=== PATIENT | female | born 1965 | race Caucasian/White ===

== ENCOUNTER → 2019-01-25 10:02 | Outpatient (CLI) | payer OTHER, MEDICAID, SELFPAY ==
--- NOTE | 2019-01-25 10:04 | DI.RAD.S_ITS ---
PROCEDURE: XR RIBS RT MIN 3V W CXR 1V INDICATIONS: pain neck, upper back, arms bilat with UE neuropathy, R ante TECHNIQUE: 2 views of the right ribs were acquired, along with a single view chest. COMPARISON: None. FINDINGS: Surgical changes and devices: None. Bones and chest wall: No fractures or dislocations. No suspicious bony lesions. Overlying soft tissues appear unremarkable. Lungs and pleura: No pleural effusions or pneumothorax. Lungs appear clear. Mediastinum: Mediastinal contours appear normal. Heart size is normal. IMPRESSION: No fracture identified. No acute disease Dictated by: Cameron Redmond M.D. on 01/25/2019 at 11:17 Approved by: Cameron Redmond M.D. on 01/25/2019 at 11:19
--- NOTE | 2019-01-25 10:04 | DI.RAD.S_ITS ---
PROCEDURE: XR CERVICAL SPINE 2V OR 3V INDICATIONS: pain neck, upper back, arms bilat with UE neuropathy, R ante TECHNIQUE: 3 view(s) of the cervical spine were acquired. COMPARISON: None. FINDINGS: Bones: No fractures or dislocations to the C7 level. The lateral masses of C1 appear intact on the odontoid view. No suspicious bony lesions. Straightening of the normal cervical lordosis. Fusion plate spurring and sclerosis. Diffuse facet arthropathy. Mild narrowing of the C5-C6 C6-C7 disc spaces. Left-sided carotid atherosclerotic calcifications IMPRESSION: Straightening of the normal cervical lordosis. Diffuse facet arthropathy. Mild C5-C6 and C6-C7 disc degeneration. Dictated by: Cameron Redmond M.D. on 01/25/2019 at 12:10 Approved by: Cameron Redmond M.D. on 01/25/2019 at 12:12
--- NOTE | 2019-01-25 10:04 | DI.RAD.S_ITS ---
PROCEDURE: XR THORACIC SPINE 3V INDICATIONS: pain neck, upper back, arms bilat with UE neuropathy, R ante TECHNIQUE: 3 views of the thoracic spine were acquired. COMPARISON: None. FINDINGS: Bones: No fractures or dislocations. No suspicious bony lesions. Multilevel discogenic changes and spurring. Soft tissues: No paravertebral stripe thickening. IMPRESSION: Diffuse thoracic spondylosis. No fracture Dictated by: Cameron Redmond M.D. on 01/25/2019 at 12:24 Approved by: Cameron Redmond M.D. on 01/25/2019 at 12:25
[2019-01-25 11:27] LABS: Add Manual Diff / Slide Review NO; Basophils Absolute Auto 100 /uL (0-100); Basophils Percent Auto 0.5 % (0-2); Eosinophils Absolute Auto 200 /uL (0-450); Eosinophils Percent Auto 1.6 % (2-4); Hematocrit 46.5 % (36-46); Hemoglobin 15.8 g/dL (12.0-16.0); Lymphocytes Absolute Auto 3500 /uL (1100-4500); Lymphocytes Percent Auto 32.8 % (25-40); Mean Corpuscular HGB Conc 34.1 % (30-36); Mean Corpuscular Hemoglobin 29.6 PG (26-34); Mean Corpuscular Volume 86.9 fL (80-100); Monocytes Absolute Auto 900 /uL (0-900); Monocytes Percent Auto 8.1 % (3-14); Neutrophils Absolute Auto 6100 /uL (1500-7000); Platelet Count 214 X10^3/uL (150-400); Red Blood Cell Count 5.35 X10^6/uL (4.0-5.2); Red Cell Distribution Width 13.4 % (11.6-14.8); White Blood Cell Count 10.7 X10^3/uL (4.5-11.0)
[2019-01-25 11:56] LABS: Alanine Aminotransferase 27 IU/L (9-52); Albumin 4.3 g/dL (3.5-5.0); Albumin Globulin Ratio 1.2 (1.0-2.8); Alkaline Phosphatase 104 U/L (38-126); Aspartate Aminotransferase 26 IU/L (14-36); BUN Creatinine Ratio 17.5 (6-22); Bilirubin Total 0.5 mg/dL (0.2-1.3); Blood Urea Nitrogen 14 mg/dL (7-17); Calcium 9.6 mg/dL (8.4-10.2); Carbon Dioxide 29 mmol/L (22-32); Chloride 99 mmol/L (98-107); Cholesterol 244 mg/dL (140-199); Estimated Glomerular Filt Rate > 60.0 mL/min (>60); Globulin 3.6 g/dL (1.7-4.1); Glucose 126 mg/dL (70-100); HDL Cholesterol 25 mg/dL (40-60); HEMOLYSIS 18 (0-50); LDL Cholesterol Calculated 150 mg/dL (<100); Potassium 3.9 mmol/L (3.4-5.1); Sodium 137 mmol/L (137-145); Total Protein 7.9 g/dL (6.3-8.2); Triglycerides 345 mg/dL (35-150)
[2019-01-25 12:24] LABS: Appearance Urine UA SL CLOUDY; Bilirubin Urine UA NEGATIVE (NEGATIVE); Color Urine UA YELLOW; Glucose Urine UA NEGATIVE (Negative); Ketones Urine UA NEGATIVE (NEGATIVE); Leukocyte Esterase Urine UA NEGATIVE (NEGATIVE); Nitrite Urine UA NEGATIVE (Negative); Occult Blood Urine UA NEGATIVE (Negative); Protein Urine UA NEGATIVE (Negative); Specific Gravity Urine UA <=1.005 (1.000-1.035); Urobilinogen Urine UA 0.2 E.U./dL (0.2)
[2019-01-25 12:31] LABS: Thyroid Stimulating Hormone 1.96 uIU/mL (0.47-4.68)
== END ==
PROVIDERS: PCP Family Medicine; Visit Provider Family Medicine
DX: G56.90 Unspecified mononeuropathy of unspecified upper limb (principal); S29.019A Strain of muscle and tendon of unspecified wall of thorax, initial encounter; S16.1XXA Strain of muscle, fascia and tendon at neck level, initial encounter; E78.5 Hyperlipidemia, unspecified; F32.9 Major depressive disorder, single episode, unspecified; I10 Essential (primary) hypertension; R07.81 Pleurodynia
CPT/HCPCS: 36415; 71101; 72040; 72072; 80053; 80061; 81003; 84443; 85025

== ENCOUNTER → 2019-06-24 14:14 | Outpatient (CLI) | payer OTHER, MEDICAID, SELFPAY ==
[2019-06-24 14:51] LABS: Alanine Aminotransferase 34 IU/L (9-52); Albumin 4.4 g/dL (3.5-5.0); Albumin Globulin Ratio 1.3 (1.0-2.8); Alkaline Phosphatase 112 U/L (38-126); Aspartate Aminotransferase 25 IU/L (14-36); BUN Creatinine Ratio 15.7 (6-22); Bilirubin Total 0.6 mg/dL (0.2-1.3); Blood Urea Nitrogen 11 mg/dL (7-17); Calcium 9.8 mg/dL (8.4-10.2); Carbon Dioxide 30 mmol/L (22-32); Chloride 100 mmol/L (98-107); Cholesterol 137 mg/dL (140-199); Estimated Glomerular Filt Rate > 60.0 mL/min (>60); Globulin 3.4 g/dL (1.7-4.1); Glucose 111 mg/dL (70-100); HDL Cholesterol 34 mg/dL (40-60); HEMOLYSIS < 15 (0-50); LDL Cholesterol Calculated 62 mg/dL (<100); Potassium 4.4 mmol/L (3.4-5.1); Sodium 139 mmol/L (137-145); Total Protein 7.8 g/dL (6.3-8.2); Triglycerides 207 mg/dL (35-150)
[2019-06-24 15:13] LABS: Hemoglobin A1C% w Est Avg Glu 5.4 % (4.0-6.0)
== END ==
PROVIDERS: PCP Family Medicine; Visit Provider Family Medicine
DX: F32.9 Major depressive disorder, single episode, unspecified (principal); Z51.81 Encounter for therapeutic drug level monitoring
CPT/HCPCS: 36415; 80053; 80061; 83036

== ENCOUNTER → 2019-07-06 13:06 | Outpatient (CLI) | payer OTHER, MEDICAID, SELFPAY ==
--- NOTE | 2019-07-06 | DI.MRI.S_ITS ---
PROCEDURE: MR CERVICAL SPINE WO CON INDICATIONS: Other abnormalities of gait and mobility TECHNIQUE: Noncontrast sagittal T1 spin echo and T2 fast spin echo, sagittal STIR, foraminal oblique sagittal T2 fast spin echo, and axial gradient echo or T2 fast spin echo through the cervical spine. COMPARISON: None. FINDINGS: Image quality: Excellent. Alignment and Curvature: There is normal bony alignment. Bone Marrow: Marrow demonstrates normal overall signal. Spinal Cord: Visualized spinal cord has normal size and signal. No cerebellar tonsillar herniation. Paraspinous Soft Tissues: No paravertebral masses. Prevertebral soft tissues are normal in thickness. C2-C3: Normal appearance. C3-C4: Normal appearance. C4-C5: Normal appearance. C5-C6: Slightly decreased intervertebral disc space and degenerative endplate changes are seen. There is diffuse disc bulge with mild central canal stenosis and moderate right-sided neuroforaminal narrowing. C6-C7: Decreased intervertebral disc space and degenerative endplate changes are noted. Central to right-sided disc herniation is seen with a mild central canal stenosis and moderate to severe right-sided neuroforaminal narrowing. There is compression of exiting right C7 nerve root. C7-T1: Normal appearance. IMPRESSION: 1. Central to right-sided disc bulge at C5-6 and C6-7 levels causing mild central canal stenosis and moderate right-sided neuroforaminal narrowing as described above. 2. No marrow edema. No compression fracture or spondylolisthesis. 3. No abnormal cervical spinal cord signal. Dictated by: Marcial Gonzalez M.D. on 07/06/2019 at 15:37 Approved by: Marcial Gonzalez M.D. on 07/06/2019 at 15:40
--- NOTE | 2019-07-06 | DI.MRI.S_ITS ---
PROCEDURE: MR HEAD/BRAIN WO CON INDICATIONS: Other abnormalities of gait and mobility TECHNIQUE: Noncontrast axial T1 spin echo, axial T2 fast spin echo, sagittal and axial FLAIR, coronal T2 fast spin echo, axial gradient echo, axial diffusion and ADC through the brain. COMPARISON: None. FINDINGS: Image quality: Degraded by metallic artifact within the right scalp. CSF Spaces: Basal cisterns are patent as visualized. No definite extra-axial fluid collections. Ventricles are normal in size and shape. Brain: No definite intracranial masses or hemorrhage. Perez/white matter interface is normal. Brainstem appears normal. Diffusion-weighted images demonstrate no acute ischemic insult. No chronic ischemic insults. Normal intravascular flow voids are present. Skull and face: Calvarium has normal marrow signal. Orbits appear normal. Sinuses: Sinuses and mastoids are clear. IMPRESSION: Limited examination secondary to metallic artifact. No definite acute process. Dictated by: Horacio Morel M.D. on 07/06/2019 at 16:39 Approved by: Horacio Morel M.D. on 07/06/2019 at 16:40
== END ==
PROVIDERS: PCP Family Medicine; Visit Provider Psychiatry & Neurology Neurology
DX: M50.20 Other cervical disc displacement, unspecified cervical region (principal)
CPT/HCPCS: 70551; 72141

== ENCOUNTER 2019-09-23 07:31 | Outpatient (CLI) | payer OTHER, MEDICAID, SELFPAY ==
[2019-09-23 08:24] VITALS: BP 119/67; PULSE 75; RESP 18; TEMP 36.7; O2SAT 98
--- NOTE | 2019-09-23 08:57 | PC.NURSE ---
Patient arrived with chest cold symptoms. Congested cough. Afebrile. Dr. Diaz spoke with patient and consented for rescheduled procedure.
[2019-09-23 10:47] LABS: Influenza A and B by PCR Rapid Negative (Negative)
== END 2019-09-23 08:30 | disposition home or self-care (01) ==
PROVIDERS: Nurse Practitioner Family; PCP Family Medicine; Visit Provider Physical Medicine & Rehabilitation
DX: M54.12 Radiculopathy, cervical region (principal); Z53.9 Procedure and treatment not carried out, unspecified reason
CPT/HCPCS: 87502; J0702; J1100; J2250; J3010

== ENCOUNTER → 2019-10-15 17:36 | Outpatient (CLI) | payer OTHER, MEDICAID, SELFPAY ==
[2019-10-15 19:08] LABS: Influenza A - CEPHEID Flu A NEGATIVE (NEGATIVE); Influenza B - CEPHEID Flu B NEGATIVE (NEGATIVE)
== END ==
PROVIDERS: PCP Family Medicine; Visit Provider Nurse Practitioner Family
DX: R68.89 Other general symptoms and signs (principal); J02.9 Acute pharyngitis, unspecified
CPT/HCPCS: 87070; 87502

== ENCOUNTER 2019-11-11 10:23 | Outpatient (CLI) | payer OTHER, MEDICAID, SELFPAY ==
[2019-11-11] VITALS (9 sets, daily range): BP systolic 121–158; BP diastolic 68–83; PULSE 71–77; RESP 16; TEMP 36.6; O2SAT 97–100
--- NOTE | 2019-11-11 10:24 | DI.RAD.S_ITS ---
PROCEDURE: PAIN L INTERLAMINAR/CAUDAL INJ INDICATIONS: RADICULOPATHY FINDINGS: Fluoroscopic spot filming was performed to verify placement of spinal needles at the C6-C7 level(s), as labeled on the films. Appropriate location(s) of the needle tip(s) was confirmed by injection of iodinated contrast. Dictated by: Caemron Redmond M.D. on 11/11/2019 at 15:35 Approved by: Cameron Redmond M.D. on 11/11/2019 at 15:35
[2019-11-11] MEDS: MIDAZOLAM 5 MG/5 ML VIAL IV (11:38)
[2019-11-11] MEDS: fentaNYL 100 MCG/2 ML INJ 50 MCG IV (11:39)
[2019-11-11] MEDS: IOPAMIDOL 15 ML VIAL 3 ML INJ (11:46)
[2019-11-11] MEDS: BUPIVACAINE 0.25% (PF) VIAL 2 ML INJ (11:46)
[2019-11-11] MEDS: DEXAMETHASONE 10 MG/ML VIAL 20 MG INJ (11:46)
--- NOTE | 2019-11-11 11:48 | PC.NURSE ---
ASSISTING PT OFF TABLE AND TRANSPORTING TO POST PROC AREA IN STABLE CONDITION. PASSING RN CARE OF PT OFF TO NI Vera RN.
--- NOTE | 2019-11-11 11:58 | P.PCN_ITS ---
Procedures Date/Time Date of procedure: 11/11/19 Time of procedure: 11:58 General Procedure description: PREOP DIAGNOSIS 1. CERVICAL STENOSIS, 2. CERVICAL HNP WITH UPPER EXTREMITY RADICULAR FEATURES, POST OP DIAGNOSIS 1. CERVICAL STENOSIS, 2. CERVICAL HNP WITH UPPER EXTREMITY RADICULAR FEATURES, PROCEDURES 1. FLUORSCOPICALLY GUIDED CONTRAST CONTROLLED INTERLAMINAR EPIDURAL STEROID INJECTION - C6/7 TL CORKY PHYSICIAN: DO JEAN Lubin Kerline is referred by Dr. Delarosa for treatment of Cervical HNP with Upper Extremity Paresthesias. FINDINGS Cervical Stenosis due to disc deterioration and nerve root irritation and nerve root irritation DESCRIPTION OF PROCEDURE Fluoroscopically guided, contrast-controlled C6/7 translaminar epidural steroid injection with conscious sedation. Following review of allergy and review of potential side effects and complications, including, but not necessarily limited to, infection, allergic reaction, local tissue breakdown, temporary as well as permanent nerve injury, stroke, paralysis, and possible , the patient indicated that patient understood and agreed to proceed. An informed consent document was signed by the patient, witnessed by a nurse, and placed in the patient's chart. Additionally, other treatment options including modalities, medications, and physical therapy were reviewed with the patient. After review of previous anaesthesic history and IV conscious sedation the patient was deemed safe to proceed with todays procedure with IV conscious sedation as ASA class II designation. Safety time-out was performed to confirm patient ID, procedure to be performed and site of procedure. IV sedation was accomplished with a combination of 2mg of Versed and 50mcg of Fentanyl administered by the RN after DO order, titrated to patient comfort during the course of the procedure while the patient remained responsive to all verbal commands. In the prone position, following sterile prep and drape of the cervical region, the C6/7 translaminar space was identified fluoroscopically. The skin was anesthetized via a 25-gauge 1.5-inch needle with 1% lidocaine solution. At this point, a 25-gauge, 2.5-inch short bevel spinal needle was atraumatically intr oduced and advanced under fluoroscopic guidance into epidural space at the C6/7 translaminar space. Depth was confirmed on lateral view. Radiological data, including multiple fluoroscopic views of the cervical spine, reveal a spinal needle at the C6/7 translaminar space. Lateral views then show placement of the needle in the epidural space. Subsequent views show contrast material flowing superiorly and inferiorly in the epidural space. DSA fluoroscopy with live contrast injection, once again, confirmed no vascular or intrathecal uptake. At this point, using loss of resistance technique with saline and air, the epidural space was entered. Following negative aspiration, injection of approximately 1.5 cc of Isovue-200 with live fluoroscopy in the AP view confirmed epidural flow in the epidural space without vascular or intrathecal uptake observed. Subsequently, a test dose of 1 cc of 1% lidocaine solution was injected and patient was observed for two minutes without signs or symptoms of complications, including abdominal pain, shortness of breath, bilateral upper or lower extremity weakness, nausea and vomiting, prior to steroid injection. At this point, 2cc or 20mg of dexamethasone was then injected without incident. The patient tolerated the procedure well without signs or symptoms of complications prior to being transferred to the recovery area for further monitoring, The patient was then transferred to the recovery area where they were observed for an appropriate period of time after the injection. The patient reported a VAS score of 6 prior to the procedure and a post-procedure VAS of 0. Total Fluoroscopy Time: 37.0 seconds Total Conscious Time: 24min POST OP INSTRUCTIONS The patient was provided a Pain Log to continue to record their response to the target-specific procedure prior to follow-up visit with the referring provider. Additionally, specific post-injection care instructions and a contact number to our office were provided if concerns arise regarding possible complications associated with the procedure are suspected. David Diaz DO Complications: none
--- NOTE | 2019-11-11 12:34 | PC.NURSE ---
Post procedure note: Patient arrived at 1157. Awake and alert. Pain level 7/10. Hand off report received from Sybil Ibanez RN. VSS. Discharged to home w/c to car at 1230
== END 2019-11-11 12:30 | disposition home or self-care (01) ==
PROVIDERS: PCP Family Medicine; Visit Provider Physical Medicine & Rehabilitation
DX: M48.02 Spinal stenosis, cervical region (principal); M50.123 Cervical disc disorder at C6-C7 level with radiculopathy; R20.2 Paresthesia of skin
CPT/HCPCS: 62323; 99152; J1100; J2250; J3010

== ENCOUNTER 2019-11-26 15:51 | Emergency (ER) | payer OTHER, MEDICAID, SELFPAY ==
[2019-11-26 15:58] VITALS: BP 117/79; PULSE 98; RESP 18; TEMP 36.7; O2SAT 100
--- NOTE | 2019-11-26 15:58 | DI.RAD.S_ITS ---
PROCEDURE: XR SHOULDER RT MIN 2V INDICATIONS: fell 3 days ago, pain w/ movement. TECHNIQUE: 3 views of the shoulder were acquired. COMPARISON: None. FINDINGS: Bones: There is a subtle longitudinally oriented lucency along the greater tuberosity, potentially a nondisplaced fracture. There is undersurface spurring along the lateral acromion and degenerative cystic changes in the inferior glenoid. No suspicious bony lesions. Visualized ribs appear intact. Soft tissues: No suspicious soft tissue calcifications. IMPRESSION: 1. Questionable nondisplaced greater tuberosity fracture. 2. Degenerative changes of the lateral acromion and glenohumeral joint. Dictated by: Maris Dailey M.D. on 11/26/2019 at 16:19 Approved by: Maris Dailey M.D. on 11/26/2019 at 16:21
[2019-11-26 16:01] VITALS: PULSE 98
--- NOTE | 2019-11-26 16:19 | ED_ITS ---
HPI - Extremity Injury (Upper) General Chief Complaint: Extremity Injury, Upper Stated Complaint: FALL RIGHT SHOULDER PAIN Time Seen by Provider: 11/26/19 15:55 Source: patient Mode of arrival: Ambulatory Limitations: no limitations History of Present Illness HPI narrative: Patient is a 54-year-old female presents with right shoulder pain after trip and fall at home 3 days ago. She states she was outside in her yard when she tripped on a branch falling on her shoulder. It hurts every time she moves she cannot roll over in bed. She has a slipped disc and has also numbness and tingling in her hand any way that does not seem to be any worse she denies any weakness. No elbow pain. MD complaint: injury to: right and shoulder Onset (ago): day(s) (3) Related Data Previous Rx's Medication Instructions Recorded cpap mask and tubing #1 ea 05/20/19 diazepam 10 mg tablet 10 mg PO .COMPLEX PRN #2 tab 06/16/19 trazodone 50 mg tablet 50 mg PO DAILY #30 tab 06/25/19 atorvastatin 20 mg tablet See Rx Instructions .ROUTE 08/23/19 .COMPLEX #90 tab clobetasol 0.05 % topical cream See Rx Instructions .ROUTE 08/23/19 .COMPLEX #30 gram albuterol sulfate 90 mcg/actuation 2 puff INHALATION Q4-6H PRN #8.5 09/23/19 aerosol inhaler gram benzonatate 100 mg capsule 200 mg PO BID-TID PRN #14 cap 10/15/19 fluticasone propionate 50 2 spray NASAL DAILY PRN #9.9 ml 10/15/19 mcg/actuation nasal spray,suspension atenolol 25 mg tablet 25 mg PO DAILY #90 tab 10/25/19 venlafaxine 150 mg 300 mg PO BEDTIME #60 cap 10/26/19 capsule,extended release 24 hr hydroxyzine HCl 25 mg tablet See Rx Instructions .ROUTE 11/01/19 .COMPLEX PRN #60 tab hydrochlorothiazide 12.5 mg tablet 12.5 mg PO DAILY #90 tab 11/05/19 losartan 100 mg tablet 100 mg PO DAILY #90 tab 11/05/19 diazepam 10 mg tablet 10 mg PO DAILY PRN #10 tab 11/08/19 cyclobenzaprine 10 mg tablet 10 mg PO BID #60 tab 11/11/19 hydrocodone-acetaminophen [[place]] 1 tab PO Q6H PRN #10 tab 11/26/19 Allergies Allergy/AdvReac Type Severity Reaction Status Date / Time No Known Drug Allergies Allergy Verified 11/26/19 16:01 Review of Systems Review of Systems Narrative: GENERAL: Denies chills,fever HEENT: Denies throat pain RESPIRATORY: Denies dyspnea, cough, wheezing CARDIOVASCULAR: Denies chest pain, palpitations GASTROINTESTINAL: Denies nausea, vomiting MUSCULOSKELETAL: See HPI SKIN: No rash, no laceration, no pruritus NEUROLOGIC: Denies weakness, dizziness, headache, numbness 8 point review of systems is negative except for those stated above and HPI Patient History Medical History Chicken pox (Resolved) Chronic back pain (Chronic) Chronic headaches (Chronic) CTS (carpal tunnel syndrome) (Chronic) Depression (Chronic) Fibroids (Resolved) Irregular periods/menstrual cycles (Resolved) Ovarian cyst (Resolved) Psoriasis (Chronic) RLS (restless legs syndrome) (Chronic) Sleep apnea (Chronic) Surgical History Anesthesia (Resolved) Status post section (Resolved 1986) Status post section (Resolved 1991) Status post cholecystectomy (Resolved 1993) Status post hysterectomy (Resolved 2016) Family History Father Heart disease Hypertension Hyperlipidemia Mother Diabetes mellitus Hypertension Brother Mental health problem Grandfather Cancer Grandmother Diabetes mellitus Heart disease Hypertension Hyperlipidemia Stroke Social History Smoking Status: Current every day smoker Tobacco: How many years used: 35 alcohol intake: former (quit in Jul) Smoking Status: Current every day smoker alcohol intake frequency: 0-2 drinks per day Alcohol type: beer and hard liquor Substance Use Type: does not use Exam Initial Vital Signs Initial Vital Signs: Vital Signs Temperature 98.0 F 11/26/19 15:58 Pulse Rate 98 H 11/26/19 15:58 Respiratory Rate 18 11/26/19 15:58 Blood Pressure 117/79 11/26/19 15:58 Pulse Oximetry 100 11/26/19 15:58 GENERAL: Well-appearing, well-nourished and in no acute distress. CARDIOVASCULAR: peripheral pulses in tact, cap refill <2 sec RESPIRATORY: No respiratory distress, speaks in full sentences without difficulty EXTREMITIES: Normal range of motion, no clubbing or edema. Neurovascularly intact Right upper extremity pain with shoulder extension and anteriorly. No clavicle step-offs sensation intact over deltoid. No pain in humerus. All no AC separation. Roll Up Guider Operator strength is equal bilaterally able to flex extend and supinate and pronate elbow. NEUROLOGICAL: Cranial nerves II through XII grossly intact. Normal gait and spe ech. SKIN: Warm, dry, no petechiae, no rashes or lesions. Procedures Orthopedic Splinting/Casting Injury #1: Side: right Upper Extremity Injury Location: shoulder Upper Extremity Immobilizer: sling/shoulder immobilizer Post splinting neuro exam: intact Post splinting vascular exam: intact Placed by: Nursing Course Orders Ordered: ED Orders 11/26/19 15:58 XR shoulder RT min 2V Stat Vital Signs Vital signs: Vital Signs - 8 hr 11/26/19 15:58 11/26/19 16:01 Temperature 98.0 F Pulse Rate 98 H Pulse Rate [Right Radial] 98 H Respiratory Rate 18 Blood Pressure 117/79 Pulse Oximetry 100 MDM - Extremity Injury (Upper) Imaging Data Extremity x-ray #1: Radiologist's Impression: PROCEDURE: XR SHOULDER RT MIN 2V INDICATIONS: fell 3 days ago, pain w/ movement. TECHNIQUE: 3 views of the shoulder were acquired. COMPARISON: None. FINDINGS: Bones: There is a subtle longitudinally oriented lucency along the greater tuberosity, potentially a nondisplaced fracture. There is undersurface spurring along the lateral acromion and degenerative cystic changes in the inferior glenoid. No suspicious bony lesions. Visualized ribs appear intact. Soft tissues: No suspicious soft tissue calcifications. IMPRESSION: 1. Questionable nondisplaced greater tuberosity fracture. 2. Degenerative changes of the lateral acromion and glenohumeral joint. Dictated by: Maris Dailey M.D. on 11/26/2019 at 16:19 Discharge Plan Departure Patient Disposition: Home Clinical Impression: Fracture of greater tuberosity of humerus Qualifiers: Encounter type: initial encounter Fracture type: closed Fracture alignment: nondisplaced Laterality: right Qualified Code(s): S42.254A - Nondisplaced fracture of greater tuberosity of right humerus, initial encounter for closed fracture Instructions: DI for Humeral Fracture Activity Restrictions/Additional Instructions: *You have been diagnosed with possible humeral fracture *What to do: Keep arm in sling, may require repeat x-rays and orthopedic follow-up. Please see your PCP in regards to *Continue to take medications as directed Ibuprofen 600 mg every 6-8 hours if needed for [id number] pain Tylenol 650 mg every 6 hours if needed for [id number] pain [place] 1 tablet every 6 hours if needed for severe pain *Follow up with your primary care provider in 2-3 days *Return to ER if you should have increasing pain, hand weakness swelling or any new, worsening or concerning symptoms CONTROLLED SUBSTANCE DISCHARGE (Narcotoic/benzodiazepine/Flexeril/Phenergan) 1. You have been prescribed narcotic medications, it does have acetaminophen/Tylenol/paracetamol in it so do not take extra Tylenol or Tylenol containing products TRAMADOL DOES NOT CONTAIN TYLENOL 2. Please understand that we cannot provide further refills of narcotics, benzodiazepines or controlled substances through the ED and her pain management will need to be through your provider. 3. While on these medications you cannot drive or operate heavy machinery. 4. You cannot sign legal documents or perform any duties such as this. 5. As long as you're taking opiate pain medications he should also be taking a stool softener such as Colace, Dulcolax, MiraLAX or prune juice, to help avoid constipation. Prescriptions: New hydrocodone-acetaminophen [[place]] 5-325 mg tablet 1 tab PO Q6H PRN (Reason: pain) Qty: 10 RF: 0 No Action albuterol sulfate [Ventolin HFA] 90 mcg/actuation HFA aerosol inhaler 2 puff INHALATION Q4-6H PRN (Reason: shortness of breath or wheezing) Qty: 8.5 RF: 0 fluticasone propionate 50 mcg/actuation spray,suspension 2 spray NASAL DAILY PRN (Reason: nasal congestion) Qty: 9.9 RF: 0 benzonatate [Tessalon Perles] 100 mg capsule 200 mg PO BID-TID PRN (Reason: cough) Qty: 14 RF: 0 (DME) cpap mask and tubing Qty: 1 RF: 0 diazepam [Valium] 10 mg tablet 10 mg PO .COMPLEX PRN (Reason: claustraphobia) Qty: 2 RF: 0 trazodone 50 mg tablet 50 mg PO DAILY Qty: 30 RF: 5 clobetasol 0.05 % cream See Rx Instructions .ROUTE .COMPLEX Qty: 30 RF: 2 atorvastatin 20 mg tablet See Rx Instructions .ROUTE .COMPLEX Qty: 90 RF: 0 atenolol 25 mg tablet 25 mg PO DAILY Qty: 90 RF: 0 venlafaxine 150 mg capsule,extended release 24hr 300 mg PO BEDTIME Qty: 60 RF: 0 hydroxyzine HCl 25 mg tablet See Rx Instructions .ROUTE .COMPLEX PRN (Reason: anxiety) Qty: 60 RF: 0 losartan 100 mg tablet 100 mg PO DAILY Qty: 90 RF: 1 hydrochlorothiazide 12.5 mg tablet 12.5 mg PO DAILY Qty: 90 RF: 1 diazepam 10 mg tablet 10 mg PO DAILY PRN (Reason: anxiety) Qty: 10 RF: 0 cyclobenzaprine 10 mg tablet 10 mg PO BID Qty: 60 RF: 1 Referrals: Any King ARNP [[employer] Administrator] - Isabella Delarosa DO [Primary Care Provider] -
== END 2019-11-26 16:52 | disposition home or self-care (01) ==
PROVIDERS: Emergency Provider Emergency Medicine; PCP Family Medicine
DX: S42.254A Nondisplaced fracture of greater tuberosity of right humerus, initial encounter for closed fracture (principal); W01.0XXA Fall on same level from slipping, tripping and stumbling without subsequent striking against object, initial encounter
CPT/HCPCS: 73030; 99283

== ENCOUNTER → 2020-05-15 16:26 | Outpatient (CLI) | payer OTHER, MEDICAID, SELFPAY ==
[2020-05-15 17:39] LABS: Add Manual Diff / Slide Review NO; Basophils Absolute Auto 100 /uL (0-100); Basophils Percent Auto 0.7 % (0-2); Eosinophils Absolute Auto 100 /uL (0-450); Eosinophils Percent Auto 0.8 % (2-4); Hemoglobin 14.5 g/dL (12.0-16.0); Lymphocytes Absolute Auto 3300 /uL (1100-4500); Lymphocytes Percent Auto 37.5 % (25-40); Mean Corpuscular HGB Conc 34.5 % (30-36); Mean Corpuscular Hemoglobin 30.8 PG (26-34); Mean Corpuscular Volume 89.1 fL (80-100); Monocytes Absolute Auto 600 /uL (0-900); Monocytes Percent Auto 6.4 % (3-14); Neutrophils Absolute Auto 4800 /uL (1500-7000); Neutrophils Percent Auto 54.6 % (50-75); Platelet Count 174 X10^3/uL (150-400); Red Blood Cell Count 4.71 X10^6/uL (4.0-5.2); Red Cell Distribution Width 13.7 % (11.6-14.8); White Blood Cell Count 8.8 X10^3/uL (4.5-11.0)
[2020-05-15 18:15] LABS: Rheumatoid Factor 21.7 IU/mL (<12.0)
[2020-05-15 18:16] LABS: C-Reactive Protein Quant < 0.5 mg/dL (<1.0)
[2020-05-15 18:18] LABS: Erythrocyte Sedimentation Rate 5 MM/HR (0-20)
[2020-05-15 18:30] LABS: Free T3, Triiodothyronine Free 3.47 pg/mL (2.77-5.27); Free T4, Direct Thyroxine 1.22 ng/dL (0.78-2.19)
[2020-05-15 18:44] LABS: Thyroid Stimulating Hormone 2.06 uIU/mL (0.47-4.68)
[2020-05-15 19:02] LABS: Vitamin B12 343 pg/mL (239-931)
[2020-05-18 20:09] LABS: ANA Screen, IFA Negative (.)
[2020-05-18 22:35] LABS: Vitamin B6 7.8 ug/L (2.0-32.8)
== END ==
PROVIDERS: PCP Nurse Practitioner; Referring Provider Nurse Practitioner; Visit Provider Nurse Practitioner
DX: L40.50 Arthropathic psoriasis, unspecified (principal); R52 Pain, unspecified
CPT/HCPCS: 36415; 82607; 82784; 83516; 84207; 84439; 84443; 84481; 85025; 85651; 86038; 86140; 86430

== ENCOUNTER → 2020-07-12 15:00 | Outpatient (CLI) | payer MEDICARE, MEDICAID, SELFPAY ==
[2020-07-12 16:40] LABS: Creatine Kinase 82 U/L (30-135)
[2020-07-12 16:43] LABS: Rheumatoid Factor 16.5 IU/mL (<12.0)
[2020-07-12 16:55] LABS: Erythrocyte Sedimentation Rate 11 MM/HR (0-20)
[2020-07-12 17:30] LABS: Thyroid Stimulating Hormone 1.13 uIU/mL (0.47-4.68)
[2020-07-12 17:31] LABS: Vitamin B12 427 pg/mL (239-931)
[2020-07-13 03:36] LABS: HBsAg Screen Negative (Negative); Hepatitis B Surf Ab Qualitativ Non Reactive (.)
[2020-07-13 15:48] LABS: SS A Ro Sjogrens Antibody < 0.2 AI (0.0-0.9); SS B La Sjogrens Antibody < 0.2 AI (0.0-0.9)
[2020-07-13 15:53] LABS: Hep C Virus Ab w/Reflex Quant NEGATIVE s/c (NEGATIVE)
[2020-07-13 16:36] LABS: Deamidated Gliadin Ab IgA 4 units (0-19); Deamidated Gliadin Ab IgG 2 units (0-19); Immunoglobulin A,Qn 111 mg/dL (87-352); t-Transglutaminase IgA <2 U/mL (0-3)
[2020-07-14 14:08] LABS: QuantiFERON Nil Value 0.08 IU/mL (.); QuantiFERON TB Gold Plus Negative (Negative); QuantiFERON TB1 Ag Value 0.09 IU/mL (.); QuantiFERON TB2 Ag Value 0.09 IU/mL (.)
[2020-07-14 15:11] LABS: Albumin 3.7 g/dL (2.9-4.4); Alpha 1 Globulin 0.1 g/dL (0.0-0.4); Beta 1 Globulin 0.9 g/dL (0.7-1.3); Protein, Total 6.8 g/dL (6.0-8.5)
[2020-07-14 20:59] LABS: CCP Antibodies IgG/IgA 21 units (0-19)
[2020-07-15 01:44] LABS: Vitamin B6 7.7 ug/L (2.0-32.8)
[2020-07-15 10:04] LABS: Alanine Aminotransferase 36 IU/L (<35); Albumin 4.5 g/dL (3.5-5.0); Albumin Globulin Ratio 1.4 (1.0-2.8); Alkaline Phosphatase 108 U/L (38-126); Aspartate Aminotransferase 38 IU/L (14-36); BUN Creatinine Ratio 21.9 (6-22); Bilirubin Total 0.7 mg/dL (0.2-1.3); Blood Urea Nitrogen 25 mg/dL (7-17); Calcium 9.8 mg/dL (8.4-10.2); Carbon Dioxide 27 mmol/L (22-32); Chloride 101 mmol/L (98-107); Estimated Glomerular Filt Rate 49.9 mL/min (>60); Globulin 3.2 g/dL (1.7-4.1); Glucose 100 mg/dL (70-100); HEMOLYSIS < 15 (0-50); Potassium 4.4 mmol/L (3.4-5.1); Sodium 136 mmol/L (137-145); Total Protein 7.7 g/dL (6.3-8.2)
[2020-07-19 22:49] LABS: HLA B27 Negative (.)
== END ==
PROVIDERS: Psychiatry & Neurology Neurology; PCP Nurse Practitioner; Referring Provider Internal Medicine Rheumatology; Visit Provider Internal Medicine Rheumatology
DX: M25.50 Pain in unspecified joint (principal); L40.9 Psoriasis, unspecified; R76.8 Other specified abnormal immunological findings in serum; G62.9 Polyneuropathy, unspecified
CPT/HCPCS: 36415; 80053; 81374; 82550; 82607; 82784; 83516; 84155; 84165; 84207; 84443; 85651; 86200; 86235; 86430; 86480; 86706; 86803; 87340

== ENCOUNTER → 2020-10-24 13:59 | Outpatient (CLI) | payer MEDICARE, OTHER, MEDICAID, SELFPAY ==
[2020-10-24 15:32] LABS: COVID19 -Nasal RAPID Negative (Negative)
== END ==
PROVIDERS: PCP Nurse Practitioner; Visit Provider Physical Medicine & Rehabilitation
DX: Z01.812 Encounter for preprocedural laboratory examination (principal); Z20.828 Contact with and (suspected) exposure to other viral communicable diseases
CPT/HCPCS: 87635; C9803

== ENCOUNTER 2020-10-26 10:51 | Outpatient (CLI) | payer MEDICARE, OTHER, MEDICAID, SELFPAY ==
[2020-10-26] VITALS (8 sets, daily range): BP systolic 131–162; BP diastolic 57–71; PULSE 65–72; RESP 10–17; TEMP 36.7; O2SAT 95–100
--- NOTE | 2020-10-26 10:52 | DI.RAD.S_ITS ---
PROCEDURE: PAIN C/T INTERLAMINAR INJECT INDICATIONS: SPONDYLOSIS COMPARISON: [facility], CR, XR CERVICAL SPINE 2V OR 3V, 01/25/2019, 10:13. FINDINGS: Fluoroscopic spot filming was performed to verify placement of spinal needles at the C6-C7 level(s), as labeled on the films. Appropriate location(s) of the needle tip(s) was confirmed by injection of iodinated contrast. IMPRESSION: Fluoroscopy for pain management. Dictated by: Marleny Vail M.D. on 10/26/2020 at 13:38 Approved by: Marleny Vail M.D. on 10/26/2020 at 13:38
[2020-10-26] MEDS: fentaNYL 100 MCG/2 ML INJ 50 MCG IV (11:40)
[2020-10-26] MEDS: MIDAZOLAM 5 MG/5 ML VIAL IV (11:40)
[2020-10-26] MEDS: DEXAMETHASONE 10 MG/ML VIAL 30 MG INJ (11:45)
[2020-10-26] MEDS: BUPIVACAINE 0.25% (PF) VIAL 2 ML INJ (11:45)
[2020-10-26] MEDS: IOPAMIDOL 15 ML VIAL 3 ML INJ (11:45)
--- NOTE | 2020-11-08 18:33 | P.PCN_ITS ---
Date/Time/Diagnoses Date of procedure: 10/26/20 Time of procedure: 11:37 Pre-procedure diagnosis: 1. CERVICAL STENOSIS, 2. CERVICAL HNP WITH UPPER EXTREMITY RADICULAR FEATURES Post-procedure diagnosis: same Procedure Notes Procedure: 1. FLUORSCOPICALLY GUIDED CONTRAST CONTROLLED INTERLAMINAR EPIDURAL STEROID INJECTION - C6/7 TL CORKY Indications: Kerline is referred by KRISTOFER King for treatment of Cervical HNP with Upper Extremity Paresthesias. Physician: David Diaz Total Fluoroscopy time (seconds): 18 Total sedation minutes: 17 Complications: none Procedure in detail & Post-procedure care: FINDINGS Cervical Stenosis due to disc deterioration and nerve root irritation and nerve root irritation DESCRIPTION OF PROCEDURE Fluoroscopically guided, contrast-controlled C6/7 translaminar epidural steroid injection with conscious sedation. Following review of allergy and review of potential side effects and complications, including, but not necessarily limited to, infection, allergic reaction, local tissue breakdown, temporary as well as permanent nerve injury, stroke, paralysis, and possible , the patient indicated that patient understood and agreed to proceed. An informed consent document was signed by the patient, witnessed by a nurse, and placed in the patient's chart. Additionally, other treatment options including modalities, medications, and physical therapy were reviewed with the patient. After review of previous anaesthesic history and IV conscious sedation the patient was deemed safe to proceed with today?s procedure with IV conscious sedation as ASA class II designation. Safety time-out was performed to confirm patient ID, procedure to be performed and site of procedure. IV sedation was accomplished with a combination of 2mg of Versed and 50mcg of Fentanyl administered by the RN after DO order, titrated to patient comfort during the course of the procedure while the patient remained responsive to all verbal commands. In the prone position, following sterile prep and drape of the cervical region, the C6/7 translaminar space was identified fluoroscopically. The skin was anesthetized via a 25-gauge 1.5-inch needle with 1% lidocaine solution. At this point, a 25-gauge, 2.5-inch short bevel spinal needle was atraumatically introduced and advanced under fluoroscopic guidance into epidural space at the C6/7 translaminar space. Depth was confirmed on lateral view. Radiological data, including multiple fluoroscopic views of the cervical spine, reveal a spinal needle at the C6/7 translaminar space. Lateral views then show placement of the needle in the epidural space. Subsequent views show contrast material flowing superiorly and inferiorly in the epidural space. DSA fluoroscopy with live contrast injection, once again, confirmed no vascular or intrathecal uptake. At this point, using loss of resistance technique with saline and air, the epidural space was entered. Following negative aspiration, injection of appr oximately 1.5 cc of Isovue-200 with live fluoroscopy in the AP view confirmed epidural flow in the epidural space without vascular or intrathecal uptake observed. Subsequently, a test dose of 1 cc of 1% lidocaine solution was injected and patient was observed for two minutes without signs or symptoms of complications, including abdominal pain, shortness of breath, bilateral upper or lower extremity weakness, nausea and vomiting, prior to steroid injection. At this point, 2cc or 20mg of dexamethasone was then injected without incident. The patient tolerated the procedure well without signs or symptoms of complications prior to being transferred to the recovery area for further monitoring, The patient was then transferred to the recovery area where they were observed for an appropriate period of time after the injection. The patient reported a VAS score of 6 prior to the procedure and a post-procedure VAS of 0. POST OP INSTRUCTIONS The patient was provided a Pain Log to continue to record their response to the target-specific procedure prior to follow-up visit with the referring provider. Additionally, specific post-injection care instructions and a contact number to our office were provided if concerns arise regarding possible complications associated with the procedure are suspected.
== END 2020-10-26 12:22 | disposition home or self-care (01) ==
LOC: RAD 10:52
PROVIDERS: PCP Nurse Practitioner; Referring Provider Nurse Practitioner; Visit Provider Physical Medicine & Rehabilitation
DX: M48.02 Spinal stenosis, cervical region; M50.123 Cervical disc disorder at C6-C7 level with radiculopathy
CPT/HCPCS: 62321; 99152; J1100; J2250; J3010

== ENCOUNTER → 2020-12-01 13:36 | Outpatient (CLI) | payer MEDICARE, MEDICAID, SELFPAY ==
--- NOTE | 2020-12-01 13:37 | DI.RAD.S_ITS ---
PROCEDURE: XR CERVICAL SPINE 4V OR 5V INDICATIONS: neck pain TECHNIQUE: 5 views of the cervical spine acquired. COMPARISON: [facility], CR, XR CERVICAL SPINE 2V OR 3V, 01/25/2019, 10:13. FINDINGS: Bones: No fractures or dislocations to the T1 insert after stenosis. There is moderate degenerative disc disease with anterior osteophytes prominent at C5-6 and C6-7. level. Oblique images demonstrate no bony foraminal stenoses. Soft tissues: No prevertebral soft tissue swelling. IMPRESSION: No subluxation found. Moderate degenerative disc disease C5-6 and C6-7. Dictated by: Declan Rodrigues M.D. on 12/01/2020 at 14:24 Approved by: Declan Rodrigues M.D. on 12/01/2020 at 14:25
== END ==
PROVIDERS: PCP Nurse Practitioner; Referring Provider Nurse Practitioner; Visit Provider Physical Medicine & Rehabilitation
DX: M50.223 Other cervical disc displacement at C6-C7 level (principal); M79.7 Fibromyalgia; M05.9 Rheumatoid arthritis with rheumatoid factor, unspecified; F43.10 Post-traumatic stress disorder, unspecified
CPT/HCPCS: 72050; 99214

== ENCOUNTER → 2020-12-14 13:38 | Outpatient (CLI) | payer MEDICARE, OTHER, MEDICAID, SELFPAY ==
--- NOTE | 2020-12-14 13:38 | DI.MRI.S_ITS ---
PROCEDURE: MR LUMBAR SPINE WO CON INDICATIONS: Low back pain with psoriatic arthritis TECHNIQUE: Noncontrast sagittal T1 spin echo and T2 fast echo, sagittal STIR, axial T1 and T2 fast spin echo through the lumbar spine. In cases with scoliosis, additional coronal T2 fast spin echo may be performed. COMPARISON: None. FINDINGS: Image quality: This examination is limited by involuntary motion artifact. Alignment and Curvature: There is minimal anterolisthesis seen at the L4-L5 level. Bone Marrow: Marrow is of normal overall signal. No acute vertebral body compression fractures. Spinal Cord: Conus medullaris terminates at the T12-L1 level. Visualized cord demonstrates normal signal and size. Paraspinous Soft Tissues: No paravertebral masses. T12-L1: Normal appearance. L1-L2: Normal appearance. L2-L3: The disc height and disk signal are well-preserved. Mild generalized disc bulge is seen. No significant neural foraminal narrowing can be seen. Minimal to mild central canal narrowing is present at this level. L3-L4: The disc height and disc signal are relatively well preserved. Moderate disc bulge is seen, which is slightly eccentric to the right. Moderate facet joint hypertrophy is seen. Moderate bilateral neural foraminal narrowing is seen. Moderate central canal narrowing is seen. L4-L5: Mild loss of disc height is seen. Loss of disc signal is seen. Moderate disc bulge is seen, with a mild central disc protrusion. Moderate to prominent facet hypertrophy is seen at this level. There is moderate to severe bilateral neural foraminal narrowing seen, right worse than left. There is a degree of compression seen upon the exiting nerve roots. Moderate to severe central canal narrowing is also seen, as on series 3, image 26. L5-S1: [id number] loss of disc height and disc signal can be seen. Mild to moderate disc bulge is seen, which is eccentric to the right. There is at least moderate facet hypertrophy seen. There is moderate to severe bilateral neural foraminal narrowing seen. There is a degree of compression seen upon the exiting nerve roots. Moderate central canal narrowing is seen, which is exacerbated by prominent epidural fat, as on series 3, image 31. IMPRESSION: Lumbar spine degenerative changes are seen, which are worst at L4-L5 and L5-S1. Dictated by: Anil Caldwell M.D. on 12/14/2020 at 15:35 Approved by: Anil Caldwell M.D. on 12/14/2020 at 15:38
== END ==
PROVIDERS: PCP Nurse Practitioner; Referring Provider Nurse Practitioner; Visit Provider Physical Medicine & Rehabilitation
DX: M54.5 Low back pain (principal); L40.50 Arthropathic psoriasis, unspecified; M47.26 Other spondylosis with radiculopathy, lumbar region; M47.27 Other spondylosis with radiculopathy, lumbosacral region
CPT/HCPCS: 72148

== ENCOUNTER → 2020-12-22 09:53 | Outpatient (CLI) | payer MEDICARE, OTHER, MEDICAID, SELFPAY | PROVIDERS: PCP Nurse Practitioner; Visit Provider Nurse Practitioner | DX: N34.3 Urethral syndrome, unspecified (principal) | CPT/HCPCS: 81002; 87077; 87086; 87186 ==

== ENCOUNTER → 2021-02-14 15:20 | Outpatient (CLI) | payer MEDICARE, OTHER, MEDICAID, SELFPAY ==
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
== END ==
PROVIDERS: PCP Nurse Practitioner; Referring Provider Physical Medicine & Rehabilitation; Visit Provider Physical Medicine & Rehabilitation
DX: M50.11 Cervical disc disorder with radiculopathy, high cervical region (principal); M48.02 Spinal stenosis, cervical region
CPT/HCPCS: 72141

== ENCOUNTER → 2021-02-26 13:45 | Outpatient (CLI) | payer MEDICARE, OTHER, MEDICAID, SELFPAY ==
[2021-02-26 13:52] LABS: Bacteria Urine None Seen; RBC Urine None Seen (0-5/HPF); WBC Urine None Seen (0-5/HPF)
[2021-02-26 14:44] LABS: Hemoglobin A1C% w Est Avg Glu 5.9 % (4.0-6.0)
[2021-02-26 14:48] LABS: Alanine Aminotransferase 27 IU/L (<35); Albumin 4.5 g/dL (3.5-5.0); Albumin Globulin Ratio 1.3 (1.0-2.8); Alkaline Phosphatase 117 U/L (38-126); Aspartate Aminotransferase 31 IU/L (14-36); BUN Creatinine Ratio 23.1 (6-22); Bilirubin Total 0.5 mg/dL (0.2-1.3); Blood Urea Nitrogen 30 mg/dL (7-17); Calcium 10.2 mg/dL (8.4-10.2); Carbon Dioxide 28 mmol/L (22-32); Chloride 100 mmol/L (98-107); Cholesterol 229 mg/dL (140-199); Estimated Glomerular Filt Rate 42.7 mL/min (>60); Globulin 3.5 g/dL (1.7-4.1); Glucose 115 mg/dL (70-100); HDL Cholesterol 34 mg/dL (40-60); Potassium 4.6 mmol/L (3.4-5.1); Sodium 136 mmol/L (137-145)
[2021-02-26 14:58] LABS: HEMOLYSIS 62 (0-50); Triglycerides 799 mg/dL (35-150)
[2021-02-26 15:13] LABS: Free T3, Triiodothyronine Free 2.96 pg/mL (2.77-5.27); Free T4, Direct Thyroxine 0.99 ng/dL (0.78-2.19)
[2021-02-26 15:36] LABS: Appearance Urine UA CLEAR; Bilirubin Urine UA NEGATIVE (NEGATIVE); Color Urine UA YELLOW; Glucose Urine UA NEGATIVE (Negative); Ketones Urine UA NEGATIVE (NEGATIVE); Leukocyte Esterase Urine UA NEGATIVE (NEGATIVE); Nitrite Urine UA NEGATIVE (Negative); Occult Blood Urine UA NEGATIVE (Negative); Protein Urine UA NEGATIVE (Negative); Urobilinogen Urine UA 0.2 E.U./dL (0.2)
[2021-02-26 15:37] LABS: Culture Indicated Urine Cult Not Indicated; Squamous Epithelial Cell Urine 5-10 /HPF (0-5/HPF)
[2021-02-26 16:09] LABS: Creatinine Urine Random 37.2 mg/dL
[2021-02-26 16:15] LABS: Microalbumin Urine Random < 0.6 mg/dL (0-1.6)
== END ==
PROVIDERS: PCP Nurse Practitioner; Referring Provider Nurse Practitioner; Visit Provider Nurse Practitioner
DX: E78.5 Hyperlipidemia, unspecified (principal); F33.0 Major depressive disorder, recurrent, mild; I10 Essential (primary) hypertension; Z79.899 Other long term (current) drug therapy; M54.12 Radiculopathy, cervical region; M54.16 Radiculopathy, lumbar region; L40.50 Arthropathic psoriasis, unspecified; N30.01 Acute cystitis with hematuria
CPT/HCPCS: 36415; 80053; 80061; 81001; 82043; 82570; 83036; 84439; 84443; 84481; 99214

== ENCOUNTER → 2021-04-02 08:16 | Outpatient (CLI) | payer OTHER, MEDICAID, SELFPAY ==
[2021-04-02 15:28] LABS: COVID19 -Nasal RAPID Negative (Negative)
== END ==
PROVIDERS: PCP Nurse Practitioner; Visit Provider Physical Medicine & Rehabilitation
DX: Z20.822 Contact with and (suspected) exposure to COVID-19 (principal)
CPT/HCPCS: 87635

== ENCOUNTER → 2021-04-02 14:09 | Outpatient (CLI) | payer MEDICARE, OTHER, MEDICAID, SELFPAY ==
[2021-04-02 16:09] LABS: Cholesterol 286 mg/dL (140-199); HDL Cholesterol 27 mg/dL (40-60)
[2021-04-02 16:27] LABS: Triglycerides 713 mg/dL (35-150)
== END ==
PROVIDERS: PCP Nurse Practitioner; Referring Provider Nurse Practitioner; Visit Provider Nurse Practitioner
DX: E78.1 Pure hyperglyceridemia (principal); Z20.822 Contact with and (suspected) exposure to COVID-19
CPT/HCPCS: 36415; 80061; 87635; C9803

== ENCOUNTER 2021-04-03 09:20 | Outpatient (CLI) | payer MEDICARE, MEDICAID, SELFPAY ==
[2021-04-03] VITALS (9 sets, daily range): BP systolic 91–128; BP diastolic 50–67; PULSE 67–73; RESP 15–20; TEMP 36.3; O2SAT 94–100
--- NOTE | 2021-04-03 09:24 | DI.RAD.S_ITS ---
PROCEDURE: PAIN C/T INTERLAMINAR INJECT INDICATIONS: SPINAL STENOSIS COMPARISON: [facility], , PAIN C/T INTERLAMINAR INJECT, 10/26/2020, 11:43. FINDINGS: Fluoroscopic spot filming was performed to verify placement of a spinal needle at the C6-C7 level, as labeled on the films. Appropriate location of the needle tip was confirmed by injection of iodinated contrast. IMPRESSION: No significant intraprocedural abnormality. Dictated by: Anil Caldwell M.D. on 04/03/2021 at 10:56 Approved by: Anil Caldwell M.D. on 04/03/2021 at 10:56
[2021-04-03] MEDS: fentaNYL 100 MCG/2 ML INJ 50 MCG IV (10:21)
[2021-04-03] MEDS: MIDAZOLAM 5 MG/5 ML VIAL IV (10:25)
[2021-04-03] MEDS: BUPIVACAINE 0.25% (PF) VIAL 2 ML INJ (10:26)
[2021-04-03] MEDS: IOPAMIDOL 15 ML VIAL 3 ML INJ (10:27)
[2021-04-03] MEDS: DEXAMETHASONE 10 MG/ML VIAL 30 MG INJ (10:27)
--- NOTE | 2021-04-03 10:38 | P.PCN_ITS ---
Date/Time/Diagnoses Date of procedure: 04/03/21 Time of procedure: 10:38 Pre-procedure diagnosis: 1. CERVICAL STENOSIS, 2. CERVICAL HNP WITH UPPER EXTREMITY RADICULAR FEATURES Post-procedure diagnosis: same Procedure Notes Procedure: 1. FLUORSCOPICALLY GUIDED CONTRAST CONTROLLED INTERLAMINAR EPIDURAL STEROID INJECTION - C6/7 TL CORKY Indications: Kerline is referred by KRISTOFER King for treatment of Cervical HNP with Upper Extremity Paresthesias. Physician: David Diaz Total Fluoroscopy time (seconds): 21 Total sedation minutes: 14 Complications: none Procedure in detail & Post-procedure care: FINDINGS Cervical Stenosis due to disc deterioration and nerve root irritation and nerve root irritation DESCRIPTION OF PROCEDURE Fluoroscopically guided, contrast-controlled C6/7 translaminar epidural steroid injection with conscious sedation. Following review of allergy and review of potential side effects and complications, including, but not necessarily limited to, infection, allergic reaction, local tissue breakdown, temporary as well as permanent nerve injury, stroke, paralysis, and possible , the patient indicated that patient understood and agreed to proceed. An informed consent document was signed by the patient, witnessed by a nurse, and placed in the patient's chart. Additionally, other treatment options including modalities, medications, and physical therapy were reviewed with the patient. After review of previous anaesthesic history and IV conscious sedation the patient was deemed safe to proceed with today?s procedure with IV conscious sedation as ASA class II designation. Safety time-out was performed to confirm patient ID, procedure to be performed and site of procedure. IV sedation was accomplished with a combination of 3mg of Versed and 50mcg of Fentanyl administered by the RN after DO order, titrated to patient comfort during the course of the procedure while the patient remained responsive to all verbal commands. In the prone position, following sterile prep and drape of the cervical region, the C6/7 translaminar space was identified fluoroscopically. The skin was anesthetized via a 25-gauge 1.5-inch needle with 1% lidocaine solution. At this point, a 25-gauge, 2.5-inch short bevel spinal needle was atraumatically introduced and advanced under fluoroscopic guidance into epidural space at the C6/7 translaminar space. Depth was confirmed on lateral view. Radiological data, including multiple fluoroscopic views of the cervical spine, reveal a spinal needle at the C6/7 translaminar space. Lateral views then show placement of the needle in the epidural space. Subsequent views show contrast material flowing superiorly and inferiorly in the epidural space. DSA fluoroscopy with live contrast injection, once again, confirmed no vascular or intrathecal uptake. At this point, using loss of resistance technique with saline and air, the epidural space was entered. Following negative aspiration, injection of appr oximately 1.5 cc of Isovue-200 with live fluoroscopy in the AP view confirmed epidural flow in the epidural space without vascular or intrathecal uptake observed. Subsequently, a test dose of 1 cc of 1% lidocaine solution was injected and patient was observed for two minutes without signs or symptoms of complications, including abdominal pain, shortness of breath, bilateral upper or lower extremity weakness, nausea and vomiting, prior to steroid injection. At this point, 3cc or 30mg of dexamethasone was then injected without incident. The patient tolerated the procedure well without signs or symptoms of complications prior to being transferred to the recovery area for further monitoring, The patient was then transferred to the recovery area where they were observed for an appropriate period of time after the injection. The patient reported a VAS score of 6 prior to the procedure and a post-procedure VAS of 0. POST OP INSTRUCTIONS The patient was provided a Pain Log to continue to record their response to the target-specific procedure prior to follow-up visit with the referring provider. Additionally, specific post-injection care instructions and a contact number to our office were provided if concerns arise regarding possible complications associated with the procedure are suspected.
== END 2021-04-03 11:00 | disposition home or self-care (01) ==
LOC: RAD 09:24
PROVIDERS: PCP Nurse Practitioner; Referring Provider Physical Medicine & Rehabilitation; Visit Provider Physical Medicine & Rehabilitation
DX: M48.02 Spinal stenosis, cervical region (principal); M50.123 Cervical disc disorder at C6-C7 level with radiculopathy
CPT/HCPCS: 62321; 99152; J1100; J2250; J3010

== ENCOUNTER → 2021-05-01 14:23 | Outpatient (CLI) | payer MEDICARE, MEDICAID, SELFPAY ==
[2021-05-01 15:00] LABS: COVID19 -Nasal RAPID Negative (Negative)
== END ==
PROVIDERS: PCP Nurse Practitioner; Visit Provider Physical Medicine & Rehabilitation
DX: Z20.822 Contact with and (suspected) exposure to COVID-19 (principal)
CPT/HCPCS: 87635; C9803

== ENCOUNTER 2021-05-03 15:06 | Outpatient (CLI) | payer MEDICARE, MEDICAID, SELFPAY ==
--- NOTE | 2021-05-03 15:07 | DI.RAD.S_ITS ---
PROCEDURE: PAIN L INTERLAMINAR/CAUDAL INJ INDICATIONS: SPONDYLOSIS COMPARISON: [facility], XA, PAIN L INTERLAMINAR/CAUDAL INJ, 11/11/2019, 11:39. FINDINGS: Fluoroscopic spot filming was performed to verify placement of spinal needles overlying posterior aspect of L4-5 level(s), as labeled on the films. Appropriate location(s) of the needle tip(s) was confirmed by injection of iodinated contrast. IMPRESSION: Needle overlying posterior aspect of L4-5. Dictated by: Hairka Holm M.D. on 05/03/2021 at 16:46 Approved by: Harika Holm M.D. on 05/03/2021 at 16:46
[2021-05-03 16:00] VITALS: BP 114/72; PULSE 81; RESP 16; TEMP 36.8; O2SAT 97
[2021-05-03 16:21] VITALS: BP 128/61; PULSE 79; RESP 18; O2SAT 100
[2021-05-03] MEDS: MIDAZOLAM 5 MG/5 ML VIAL IV (16:21)
[2021-05-03] MEDS: fentaNYL 100 MCG/2 ML INJ 50 MCG IV (16:21)
[2021-05-03 16:25] VITALS: BP 121/58; PULSE 76; RESP 16; O2SAT 97
[2021-05-03] MEDS: BUPIVACAINE 0.25% (PF) VIAL 2 ML INJ (16:25)
[2021-05-03] MEDS: IOPAMIDOL 15 ML VIAL 3 ML INJ (16:25)
[2021-05-03] MEDS: DEXAMETHASONE 10 MG/ML VIAL 20 MG INJ (16:25)
[2021-05-03] MEDS: BETAMETHASONE 30 MG/5 ML MDV 6 MG INJ (16:26)
--- NOTE | 2021-05-03 16:33 | P.PCN_ITS ---
Date/Time/Diagnoses Date of procedure: 05/03/21 Time of procedure: 16:33 Pre-procedure diagnosis: 1. HNP WITH RADICULAR FEATURES, 2. MULTILEVEL CENTRAL STENOSIS, Post-procedure diagnosis: same Procedure Notes Procedure: 1. FLUOROSCOPICALLY GUIDED CONTRAST CONTROLLED INTERLAMINAR EPIDURAL STEROID INJECTION -L4/5 Indications: Kerline is referred by KRISTOFER King for treatment of Bilateral Foraminal Stenosis R>L LE symptoms. Physician: David Diaz Total Fluoroscopy time (seconds): 6 Total sedation minutes: 7 Complications: none Procedure in detail & Post-procedure care: FINDINGS Multilevel Central Spinal Stenosis with Nerve Root Compression DESCRIPTION OF PROCEDURE Fluoroscopically guided, contrast-controlled L4/5 translaminar epidural steroid injection. Following review of allergy and review of potential side effects and complications, including, but not necessarily limited to, infection, allergic reaction, local tissue breakdown, temporary as well as permanent nerve injury, paralysis, stroke and possible , the patient indicated that the patient understood and agreed to proceed. An informed consent document was signed by the patient, witnessed by a nurse, and placed in the patient's chart. Additionally, other treatment options including modalities, medications, and physical therapy were reviewed with the patient. After review of previous anaesthesic history and IV conscious sedation the patient was deemed safe to proceed with today?s procedure with IV conscious sedation as ASA class II designation. Safety time-out was performed to confirm patient ID, procedure to be performed and site of procedure. IV sedation was accomplished with a combination of 2mg of Versed and 50mcg of Fentanyl was administered by the RN after DO order, titrated to patient comfort during the course of the procedure while the patient remained responsive to all verbal commands In the prone position, following sterile prep and drape of the lumbar region, the L4/5 translaminar space was identified fluoroscopically. The skin was anesthetized via a 25-gauge, 1.5inch needle with 1% lidocaine solution. At this point, a 22-gauge short bevel spinal needle was atraumatically introduced and advanced under fluoroscopic guidance into the region of the L4/5 translaminar space. Depth was confirmed on lateral view. Radiological data, including multiple fluoroscopic views of the lumbar spine, reveal a spinal needle at the L4/5 translaminar space. Lateral views then show placement of the needle in the epidural space. Subsequent views show contrast material flowing superiorly and inferiorly in the epidural space. No vascular or intrathecal uptake is observed. At this point, using loss of resistance technique with saline and air, the epidural space was entered. This was confirmed following negative aspiration with injection of approximately 1.5cc of Isovue 200, showing excellent epidural flow without vascular or intrathecal uptake. At this point, 1cc of 1% lidocaine solution combined with 3cc or 20mg of dexamethasone and 6mg betamethasone was injected without incident. The patient tolerated the procedure well without signs or symptoms of complica tions prior to transfer to the recovery area continued monitoring without incident. The patient was then transferred to the recovery area where they were observed for an appropriate period of time after the injection. The patient reported a VAS score of 6 prior to the procedure and a post- procedure VAS of 0. POST OP INSTRUCTIONS The patient was provided a Pain Log to continue to record their response to the target-specific procedure prior to follow-up visit with their referring physician. Additionally, specific post-injection care instructions and a contact number to our office were provided if concerns arise regarding possible complications associated with the procedure are suspected.
[2021-05-03 16:35] VITALS: BP 137/58; PULSE 80; RESP 20; O2SAT 94
[2021-05-03 16:40] VITALS: BP 121/58; PULSE 78; RESP 16; O2SAT 95
[2021-05-03 16:45] VITALS: BP 115/56; PULSE 79; RESP 20; O2SAT 95
== END 2021-05-03 16:55 | disposition home or self-care (01) ==
LOC: RAD 15:07
PROVIDERS: PCP Nurse Practitioner; Referring Provider Physical Medicine & Rehabilitation; Visit Provider Physical Medicine & Rehabilitation
DX: M51.16 Intervertebral disc disorders with radiculopathy, lumbar region (principal); M48.061 Spinal stenosis, lumbar region without neurogenic claudication
CPT/HCPCS: 62323; J0702; J1100; J2250; J3010

== ENCOUNTER → 2021-06-19 15:11 | Outpatient (CLI) | payer MEDICARE, MEDICAID, SELFPAY ==
[2021-06-19 16:18] LABS: Alanine Aminotransferase 24 IU/L (<35); Albumin 4.1 g/dL (3.5-5.0); Albumin Globulin Ratio 1.3 (1.0-2.8); Alkaline Phosphatase 103 U/L (38-126); Aspartate Aminotransferase 31 IU/L (14-36); BUN Creatinine Ratio 22.8 (6-22); Bilirubin Total 0.4 mg/dL (0.2-1.3); Blood Urea Nitrogen 18 mg/dL (7-17); Calcium 9.8 mg/dL (8.4-10.2); Carbon Dioxide 29 mmol/L (22-32); Chloride 101 mmol/L (98-107); Cholesterol 153 mg/dL (140-199); Estimated Glomerular Filt Rate > 60.0 mL/min (>60); Globulin 3.2 g/dL (1.7-4.1); Glucose 108 mg/dL (70-100); HDL Cholesterol 45 mg/dL (40-60); HEMOLYSIS < 15 (0-50); LDL Cholesterol Calculated 66 mg/dL (<100); Potassium 4.1 mmol/L (3.4-5.1); Sodium 136 mmol/L (137-145); Total Protein 7.3 g/dL (6.3-8.2); Triglycerides 211 mg/dL (35-150)
== END ==
PROVIDERS: PCP Nurse Practitioner; Referring Provider Nurse Practitioner; Visit Provider Nurse Practitioner
DX: E78.2 Mixed hyperlipidemia (principal)
CPT/HCPCS: 36415; 80053; 80061

== ENCOUNTER → 2022-09-20 10:56 | Outpatient (CLI) | payer MEDICARE, MEDICAID, SELFPAY ==
--- NOTE | 2022-09-20 11:00 | DI.MG.S_ITS ---
BILATERAL DIGITAL SCREENING MAMMOGRAM 3D/2D WITH CAD: 09/20/2022 CLINICAL: Baseline exam. Routine screening. No prior exams were available for comparison. There are scattered areas of fibroglandular density in both breasts (category b / 25%-50% glandular tissue). Current study was also evaluated with a Computer Aided Detection (CAD) system. No significant masses, calcifications, or other findings are seen in either breast. IMPRESSION: NEGATIVE There is no mammographic evidence of malignancy. A 1 year screening mammogram is recommended. Based on the Tyrer Cuzick model (a risk assessment model) the patient's lifetime risk is 5.6% and her 10 year risk is 1.7%. According to the ACR, ACS, and NCCN guidelines, an annual breast MRI exam along with mammogram is recommended if the patient's lifetime risk is 20% or greater. This exam was interpreted at Station ID: [id number]. NOTE: For mammograms, a report in lay terms will be sent to the patient. Approximately 15% of breast malignancies will not be visualized mammographically. In the management of a palpable breast mass, a negative mammogram must not discourage biopsy of a clinically suspicious lesion. Electronically Signed By: Travis yao/ayleen:09/20/2022 17:24:33 letter sent: Normal Exam ACR BI-RADS Category 1: Negative [id number]
== END ==
PROVIDERS: PCP Nurse Practitioner; Referring Provider Nurse Practitioner; Visit Provider Nurse Practitioner
DX: Z12.31 Encounter for screening mammogram for malignant neoplasm of breast (principal)
CPT/HCPCS: 77063; 77067

== ENCOUNTER 2023-03-18 15:21 | Emergency (ER) | payer MEDICARE, MEDICAID, SELFPAY ==
[2023-03-18 15:50] VITALS: BP 107/59; PULSE 72; RESP 17; TEMP 36.6; O2SAT 96; BMI 33.2
--- NOTE | 2023-03-18 16:33 | PC.NURSE ---
pt updated on coming back to ER , room 3. pt declined and reported that she had a ride to pick her up
== END 2023-03-18 16:35 | disposition left against medical advice (07) ==
PROVIDERS: Emergency Provider Emergency Medicine; PCP Nurse Practitioner
DX: M79.641 Pain in right hand (principal)
CPT/HCPCS: 99281

== ENCOUNTER → 2024-09-08 13:57 | Outpatient (CLI) | payer MEDICARE, MEDICAID, SELFPAY ==
--- NOTE | 2024-09-08 13:59 | DI.CT.S_ITS ---
PROCEDURE: CT LUNG LOW DOSE SCREENING INDICATIONS: screening cancer TECHNIQUE: Noncontrast 2.0-2.5 mm thick sections acquired from the pulmonary apices to the posterior costophrenic angles. 7 mm thick axial MIP, and 5 mm coronal and sagittal reformats were then acquired. For radiation dose reduction, the following was used: automated exposure control, adjustment of mA and/or kV according to patient size. COMPARISON: None. FINDINGS: Image quality: Diagnostic. Lower Neck: No enlarged lymph nodes. Thyroid: No thyroid nodules which require sonographic follow up, per consensus guidelines. Axillae: No enlarged lymph nodes. Chest Wall: Unremarkable. Bones: No acute osseous abnormality. Degenerative changes without acute vertebral body compression fracture. Lungs and Pleura: No pneumothorax or pleural effusions. No consolidation or suspicious nodules. Heart: Heart size is normal. No pericardial effusion. Single-vessel coronary artery calcifications. Thoracic Vessels: The aorta and pulmonary arteries demonstrate normal size. Mediastinum and Filomena: No enlarged lymph nodes. Esophagus: No wall thickening. No hiatal hernia. Upper Abdomen: Status post cholecystectomy. Visualized upper abdomen solid organs and bowel loops appear normal. IMPRESSION: No suspicious pulmonary nodules. LUNG-RADS 1; continued annual screening, if eligible. Clinically Significant Non-pulmonary Findings: None. Approved by: Nancy Lynn M.D.,Ph.D. on 09/08/2024 at 14:57
--- NOTE | 2024-09-08 13:59 | DI.US.S_ITS ---
PROCEDURE: US PELVIC COMPLETE INDICATIONS: right adnexal pain, status post hysterectomy and oophorectomy, however patient cannot recall laterality of oophorectomy. TECHNIQUE: Real-time scanning was performed of the pelvic organs, with image documentation. Additional endovaginal scanning was necessary due to incomplete visualization of the adnexal and endometrial structures by transabdominal scanning. COMPARISON: None. FINDINGS: Uterus: Uterus is surgically absent. Ovaries: A single ovary is visualized in the midline measuring 2.8 x 1.1 x 2.5 cm with a calculated ovarian volume of 3.9 cc. The ovary has a normal sonographic appearance. Less than 12 follicles can be seen in the ovary. No adnexal masses are seen. Other: No pathologic free abdominal or pelvic fluid. IMPRESSION: Status post hysterectomy. Morphologically normal single midline ovary. Approved by: Nancy Lynn M.D.,Ph.D. on 09/08/2024 at 15:45
--- NOTE | 2024-09-08 15:04 | DI.MRI.S_ITS ---
PROCEDURE: MR LUMBAR SPINE WO CON INDICATIONS: back pain TECHNIQUE: Noncontrast sagittal T1 spin echo and T2 fast echo, sagittal STIR, and T2 fast spin echo through the lumbar spine. In cases with scoliosis, additional coronal T2 fast spin echo may be performed. COMPARISON: [facility], MR, MR LUMBAR SPINE WO CON, 12/14/2020, 14:22. FINDINGS: Image quality: Excellent Mild straightening of the lumbar spine. Mild retrolisthesis of L2 on 3, L3 on L4. Grade 1 anterolisthesis of L4 on L5. A small Schmorl's node is noted at the inferior endplate of T12. Mild fibrovascular end plate change at L1-2. Vertebral body height of the lumbar spine is well maintained. Multilevel disc desiccation and disc bulge. Conus terminates at the level of T12-L1, and is unremarkable. Right neural foraminal stenosis: Mild at L1-2. Moderate at L4-5, and L5-S1. Left neural foraminal stenosis: Mild at L2-3, mild at L3-4, moderate at L4-5, mild at L5-S1. Likely central disc protrusion at T11-T12, resulting in likely moderate central canal stenosis and mass effect on the cord, visualized on sagittal images only, and is grossly unchanged from prior exam. Axial images: T12-L1: Mild bilateral facet arthropathy. No central canal stenosis. L1-2: Mild disc bulge. No central canal stenosis. L2-3: Disc bulge. Mild bilateral facet arthropathy. Epidural lipomatosis. Mild central canal stenosis. L3-4: Mild bilateral facet arthropathy. Mild disc bulge. Mild central canal stenosis. L4-5: Severe bilateral facet arthropathy. Posterior disc uncovering. Moderate central canal stenosis. L5-S1: Disc bulge. Mild bilateral facet arthropathy. Mild central canal stenosis. Visualized sacrum is intact. There is T2 hyperintense, T1 hypointense lesion in S3 vertebral body, partially visualized, previously partially visualized as well. No abdominal aortic aneurysm. IMPRESSION: 1. Multilevel degenerative changes lumbar spine, most pronounced at L4-5, where there is unchanged moderate central canal stenosis and slightly progressed moderate bilateral neural foraminal stenosis. 2. T2 hyperintense lesion is 3 vertebral body, partially visualized. Dictated by: Kaylah Braun M.D. on 09/08/2024 at 15:27 Approved by: Kaylah Braun M.D. on 09/08/2024 at 15:44
[2024-09-08 16:03] LABS: Creatinine Urine Random 148.35 mg/dL
[2024-09-08 16:09] LABS: Microalbumin Urine Random < 0.6 mg/dL (0-1.6)
[2024-09-08 17:10] LABS: Hemoglobin A1C% w Est Avg Glu 5.9 % (4.0-6.0)
[2024-09-08 17:25] LABS: Alanine Aminotransferase 18 IU/L (<35); Albumin 4.2 g/dL (3.5-5.0); Albumin Globulin Ratio 1.4 (1.0-2.8); Alkaline Phosphatase 66 U/L (38-126); Aspartate Aminotransferase 24 IU/L (14-36); BUN Creatinine Ratio 24.2 (6-22); Bilirubin Total 0.4 mg/dL (0.2-1.3); Blood Urea Nitrogen 24 mg/dL (7-17); Calcium 10.2 mg/dL (8.4-10.2); Carbon Dioxide 30 mmol/L (22-32); Chloride 102 mmol/L (98-107); Cholesterol 150 mg/dL (140-199); Estimated Glomerular Filt Rate > 60 mL/min (>60); Globulin 2.9 g/dL (1.7-4.1); Glucose 98 mg/dL (70-100); HDL Cholesterol 31 mg/dL (40-60); HEMOLYSIS < 15 (0-50); LDL Cholesterol Calculated 76 mg/dL (<100); Potassium 4.5 mmol/L (3.4-5.1); Sodium 137 mmol/L (137-145); Total Protein 7.1 g/dL (6.3-8.2); Triglycerides 214 mg/dL (35-150)
== END ==
PROVIDERS: PCP Family Medicine; Referring Provider Family Medicine; Visit Provider Family Medicine
DX: F17.210 Nicotine dependence, cigarettes, uncomplicated (principal); E11.9 Type 2 diabetes mellitus without complications; I10 Essential (primary) hypertension; Z12.2 Encounter for screening for malignant neoplasm of respiratory organs; R10.2 Pelvic and perineal pain; M47.816 Spondylosis without myelopathy or radiculopathy, lumbar region; M47.817 Spondylosis without myelopathy or radiculopathy, lumbosacral region; M48.061 Spinal stenosis, lumbar region without neurogenic claudication; M48.07 Spinal stenosis, lumbosacral region; M89.9 Disorder of bone, unspecified; Z90.710 Acquired absence of both cervix and uterus; Z90.721 Acquired absence of ovaries, unilateral; Z90.49 Acquired absence of other specified parts of digestive tract
CPT/HCPCS: 36415; 71271; 72148; 76856; 80053; 80061; 82043; 82570; 83036

== ENCOUNTER → 2024-10-13 12:55 | Outpatient (CLI) | payer MEDICARE, MEDICAID, SELFPAY ==
[2024-10-13 14:00] LABS: Add Manual Diff / Slide Review NO; Basophils Absolute Auto 100 /uL (0-100); Basophils Percent Auto 0.6 % (0-2); Eosinophils Absolute Auto 100 /uL (0-450); Eosinophils Percent Auto 1.4 % (2-4); Hematocrit 40.4 % (36-46); Hemoglobin 13.6 g/dL (12.0-16.0); Lymphocytes Absolute Auto 3100 /uL (1100-4500); Lymphocytes Percent Auto 33.5 % (25-40); Mean Corpuscular HGB Conc 33.5 % (30-36); Mean Corpuscular Hemoglobin 31.2 PG (26-34); Monocytes Absolute Auto 1200 /uL (0-900); Monocytes Percent Auto 13.2 % (3-14); Neutrophils Absolute Auto 4700 /uL (1500-7000); Neutrophils Percent Auto 51.3 % (50-75); Platelet Count 203 X10^3/uL (150-400); Red Blood Cell Count 4.35 X10^6/uL (4.0-5.2); Red Cell Distribution Width 15.1 % (11.6-14.8); White Blood Cell Count 9.1 X10^3/uL (4.5-11.0)
[2024-10-13 14:18] LABS: Alanine Aminotransferase 19 IU/L (<35); Albumin Globulin Ratio 1.7 (1.0-2.8); Alkaline Phosphatase 53 U/L (38-126); Aspartate Aminotransferase 24 IU/L (14-36); BUN Creatinine Ratio 15.5 (6-22); Bilirubin Total 0.4 mg/dL (0.2-1.3); Blood Urea Nitrogen 15 mg/dL (7-17); C-Reactive Protein Quant 0.6 mg/dL (<1.0); Calcium 9.8 mg/dL (8.4-10.2); Carbon Dioxide 31 mmol/L (22-32); Chloride 101 mmol/L (98-107); Estimated Glomerular Filt Rate > 60 mL/min (>60); Globulin 2.4 g/dL (1.7-4.1); Glucose 111 mg/dL (70-100); HEMOLYSIS < 15 (0-50); Potassium 3.6 mmol/L (3.4-5.1); Sodium 138 mmol/L (137-145); Total Protein 6.4 g/dL (6.3-8.2)
[2024-10-13 15:07] LABS: Erythrocyte Sedimentation Rate 8 MM/HR (0-20)
== END ==
PROVIDERS: PCP Family Medicine; Referring Provider Physician Assistant Medical; Visit Provider Physician Assistant Medical
DX: L40.50 Arthropathic psoriasis, unspecified (principal)
CPT/HCPCS: 36415; 80053; 85025; 85651; 86140

== ENCOUNTER → 2024-11-24 13:00 | Outpatient (CLI) | payer MEDICARE, MEDICAID, SELFPAY ==
--- NOTE | 2024-11-24 13:02 | DI.MRI.S_ITS ---
PROCEDURE: MR PELIS WO/W CON INDICATIONS: follow up, T1 hypointense lesion in S3 TECHNIQUE: Noncontrast axial and oblique coronal T1 spin echo and STIR through the sacroiliac joints. COMPARISON: [facility], MR, MR LUMBAR SPINE WO CON, 09/08/2024, 14:56. FINDINGS: Image quality: Excellent. Bones: The bilateral sacroiliac joints are unremarkable. There is a 1.4 cm T2 hyperintense, T1 hypointense lesion in S3 vertebral body, without enhancement, nonspecific. Mild fibrovascular end plate change at the right aspect of L4-5. 1.0 cm T2 hyperintense nonenhancing lesion at the tip of the sacral coccyx, likely representing small amount of fluid. Soft tissues: Unremarkable IMPRESSION: 1. 1.4 cm nonenhancing lesion S3 vertebral body, nonspecific but favors benign etiology. 2. 1.0 cm T2 hyperintense nonenhancing lesion at the tip of the sacral coccyx, likely representing small amount of fluid, of unclear clinical etiology. Dictated by: Kaylah Braun M.D. on 11/24/2024 at 17:06 Approved by: Kaylah Braun M.D. on 11/24/2024 at 17:16
== END ==
PROVIDERS: PCP Family Medicine; Referring Provider Family Medicine; Visit Provider Family Medicine
DX: R93.7 Abnormal findings on diagnostic imaging of other parts of musculoskeletal system (principal)
CPT/HCPCS: 72197; A9579

== ENCOUNTER → 2025-07-18 15:32 | Outpatient (CLI) | payer MEDICARE, MEDICAID, SELFPAY ==
[2025-07-18 16:18] LABS: Microalbumi Creatinin Ratio Ur 4.0 ug/mg CR (<30)
--- NOTE | 2025-07-18 16:28 | DI.RAD.S_ITS ---
PROCEDURE: XR CERVICAL SPINE 2V OR 3V INDICATIONS: BACK PAIN TECHNIQUE: Three views) of the cervical spine were acquired. COMPARISON: [facility], CR, XR CERVICAL SPINE 4V OR 5V, 12/01/2020, 13:35. FINDINGS: Cervical spine curvature and alignment: Normal. Bones: There are no osseous abnormalities. Disc spaces: Mild C4-5, moderate C5-6 C6-7 C7-T1 degenerative disc disease. There is moderate C2-3 through C7-T1 degenerative facet disease Soft tissues: Moderate atherosclerotic calcification present left carotid bifurcation IMPRESSION: Degeneration Atherosclerotic calcification left carotid bifurcation. Consider aggressive identification review and treatment of atherosclerotic risk factors. Also please correlate with carotid bruit on physical exam Dictated by: Darrin Pastor M.D. on 07/19/2025 at 12:06 Approved by: Darrin Pastor M.D. on 07/19/2025 at 12:07
[2025-07-18 16:54] LABS: Alanine Aminotransferase 26 IU/L (<35); Albumin 4.0 g/dL (3.5-5.0); Albumin Globulin Ratio 1.4 (1.0-2.8); Alkaline Phosphatase 61 U/L (38-126); Blood Urea Nitrogen 14 mg/dL (7-17); Calcium 9.6 mg/dL (8.4-10.2); Carbon Dioxide 29 mmol/L (22-32); Chloride 101 mmol/L (98-107); Cholesterol 161 mg/dL (140-199); Estimated Glomerular Filt Rate > 60 mL/min (>60); Globulin 2.8 g/dL (1.7-4.1); Glucose 138 mg/dL (70-99); HDL Cholesterol 41 mg/dL (40-60); HEMOLYSIS < 15 (0-50); Potassium 3.7 mmol/L (3.4-5.1); Sodium 137 mmol/L (137-145); Total Protein 6.8 g/dL (6.3-8.2); Triglycerides 193 mg/dL (35-150)
[2025-07-18 17:09] LABS: Add Manual Diff / Slide Review NO; Hematocrit 43.0 % (36-46); Hemoglobin 14.6 g/dL (12.0-16.0); Lymphocytes Absolute Auto 3500 /uL (1100-4500); Mean Corpuscular HGB Conc 33.9 % (30-36); Mean Corpuscular Hemoglobin 31.2 PG (26-34); Mean Corpuscular Volume 91.9 fL (80-100); Platelet Count 238 X10^3/uL (150-400)
[2025-07-18 17:10] LABS: Hemoglobin A1C% w Est Avg Glu 5.7 % (4.0-6.0)
[2025-07-18 17:35] LABS: Alanine Aminotransferase 26 IU/L (<35); Albumin 4.1 g/dL (3.5-5.0); Albumin Globulin Ratio 1.7 (1.0-2.8); Alkaline Phosphatase 64 U/L (38-126); Blood Urea Nitrogen 13 mg/dL (7-17); Calcium 9.6 mg/dL (8.4-10.2); Carbon Dioxide 27 mmol/L (22-32); Chloride 100 mmol/L (98-107); Estimated Glomerular Filt Rate > 60 mL/min (>60); Globulin 2.4 g/dL (1.7-4.1); Glucose 126 mg/dL (70-99); HEMOLYSIS < 15 (0-50); Potassium 3.6 mmol/L (3.4-5.1); Sodium 137 mmol/L (137-145); Total Protein 6.5 g/dL (6.3-8.2)
[2025-07-19 23:39] LABS: QuantiFERON Mitogen Value >10.00 IU/mL (.); QuantiFERON Nil Value 0.05 IU/mL (.); QuantiFERON TB Gold Plus Negative (Negative); QuantiFERON TB1 Ag Value 0.05 IU/mL (.); QuantiFERON TB2 Ag Value 0.06 IU/mL (.)
== END ==
PROVIDERS: PCP Family Medicine; Referring Provider Physician Assistant Medical; Visit Provider Physician Assistant Medical
DX: E11.9 Type 2 diabetes mellitus without complications (principal); L40.50 Arthropathic psoriasis, unspecified; M54.9 Dorsalgia, unspecified; M50.30 Other cervical disc degeneration, unspecified cervical region
CPT/HCPCS: 36415; 72040; 80053; 80061; 82043; 82570; 83036; 85025; 85651; 86140; 86480

== ENCOUNTER → 2025-07-28 13:36 | Outpatient (CLI) | payer MEDICARE, MEDICAID, SELFPAY ==
--- NOTE | 2025-07-28 13:38 | DI.US.S_ITS ---
PROCEDURE: US CAROTID DOPPLER BI INDICATIONS: follow up XR, calcification of carotids TECHNIQUE: Color and pulse Doppler interrogation was performed of both carotid systems, with image documentation and velocity measurements. COMPARISON: [facility], CR, XR CERVICAL SPINE 2V OR 3V, 07/18/2025, 16:35. FINDINGS: Stenosis calculations are based on SRU (S[employer] in [employer]) criteria. The flow velocities and the arterial waveforms are normal within both carotid arterial systems. Mild atherosclerotic plaque is seen on the left. The estimated degree of internal carotid artery stenosis is less than 50%. Antegrade flow is confirmed within both vertebral arteries. IMPRESSION: No hemodynamically significant stenosis is seen. Dictated by: Anil Caldwell M.D. on 07/28/2025 at 13:42 Approved by: Anil Caldwell M.D. on 07/28/2025 at 13:43
== END ==
LOC: US 13:38
PROVIDERS: PCP Family Medicine; Referring Provider Family Medicine; Visit Provider Family Medicine
DX: I65.23 Occlusion and stenosis of bilateral carotid arteries (principal)
CPT/HCPCS: 93880